=== PATIENT | female | born 1950 ===

== ENCOUNTER 2022-10-11 07:05 | Observation (INO) ==
[2022-10-11] MEDS ORDERED: Lidocaine 4% CREAM (LMX) 5 GM TUBE TOPICAL ONE (07:21)
[2022-10-12] MEDS ORDERED: Buffered Lidocaine 1% SYRIN 1 ml INTRADERM ONE (06:00)
[2022-10-12] MEDS ORDERED: Lactated Ringers 1000 ml BAG 1,000 ML IV SCH (06:00)
[2022-10-12] MEDS ORDERED: Clindamycin 900 MG/D5W BAG 900 MG/50 ML BAG IVPB ONE (06:36)
[2022-10-12] MEDS ORDERED: Heparin 5000 UNITS/ML 1 mL VIAL ONE (06:36)
[2022-10-12] MEDS ORDERED: ISOSULFAN BLUE 1% 5 ML VIAL 10 MG/ML SUBCUT ONE (07:05)
[2022-10-12] MEDS ORDERED: Methylene Blue 0.5 % 50 MG/10 ML AMP IV ONE ×2 (07:06→12:45)
[2022-10-12] MEDS ORDERED: Lidocaine 2% PF 5 ML VIAL ONE (07:06)
[2022-10-12] MEDS ORDERED: Ondansetron 4 mg VIAL 2 MG/ML 2 ml VIAL ONE ×2 (07:06→12:05)
[2022-10-12] MEDS ORDERED: fentaNYL 250 mcg/5 ml 50 MCG/ML 5 ml VIAL (250 MCG) ONE (07:06)
[2022-10-12] MEDS ORDERED: Dexamethasone IV 4 MG/ML VIAL 1 ml VIAL ONE (07:06)
[2022-10-12] MEDS ORDERED: Bupivacaine 0.5% SDV PF 30ML VIAL ONE (07:06)
[2022-10-12] MEDS ORDERED: Midazolam 2 mg/2 ml VIAL 1 mg/ml 2 ml VIAL (2 mg) ONE (07:06)
[2022-10-12] MEDS ORDERED: Propofol 10 MG/ML 20 ML BTL ONE (07:06)
[2022-10-12] MEDS ORDERED: Phenylephrine IV 10 MG/ML 1 ml VIAL ONE (08:15)
[2022-10-12] MEDS ORDERED: fentaNYL 100 mcg/2 ml 50 MCG/ML VIAL ONE ×3 (09:25→13:47)
[2022-10-12] MEDS ORDERED: Sevoflurane BOTTLE ONE (10:23)
[2022-10-12] MEDS ORDERED: fentaNYL 100 mcg/2 ml 50 MCG/ML VIAL IV PRN (12:46)
[2022-10-12] MEDS ORDERED: Acetaminophen IV 1 GM/100ML 1,000 MG/100 ML BAG IV PRN (12:46)
[2022-10-12] MEDS ORDERED: Naloxone 0.4 mg VIAL 0.4 mg/ml 1 ml VIAL IV PRN (12:46)
[2022-10-12] MEDS ORDERED: HYDROmorphone 1 MG/1 ML SYRINGE IV PRN (12:46)
[2022-10-12] MEDS ORDERED: Acetaminophen IV 1 GM/100ML 1,000 MG/100 ML BAG IV ONE (13:47)
[2022-10-12] MEDS ORDERED: Benzocaine/Menthol LOZ PO PRN (17:43)
[2022-10-12] MEDS ORDERED: Morphine 2 MG/ML SYRINGE IV PRN (17:47)
[2022-10-12] MEDS ORDERED: Lactated Ringers 1000 ml BAG 1,000 ML IV ONE (17:50)
[2022-10-12] MEDS ORDERED: NF: Olopatadine 0.2% (NF) 1 DROP BTL BOTH EYES PRN (17:51)
[2022-10-12] MEDS ORDERED: HYDROcodone/ACETAMIN 5/325 mg TAB ONE (18:14)
[2022-10-12] MEDS: HYDROcodone/ACETAMIN 5/325 mg TAB PO PRN (18:16)
[2022-10-12] MEDS: Clindamycin 900 MG/D5W BAG 900 MG/50 ML BAG IVPB SCH (20:43)
[2022-10-12] MEDS: Heparin 5000 UNITS/ML 1 mL VIAL SUBCUT SCH (22:21)
[2022-10-13] MEDS: Clindamycin 900 MG/D5W BAG 900 MG/50 ML BAG IVPB SCH (03:20)
[2022-10-13] MEDS: HYDROcodone/ACETAMIN 5/325 mg TAB PO PRN (06:36)
[2022-10-13] MEDS: Heparin 5000 UNITS/ML 1 mL VIAL SUBCUT SCH (06:37)
[2022-10-13 08:24] VITALS: BP 155/89
== END 2022-10-13 10:55 | disposition home or self-care (01) ==
LOC: OR 07:05 → SSU 07:05
PROVIDERS: ADMIT Student in an Organized Health Care Education/Training Program; ATTEND Student in an Organized Health Care Education/Training Program